=== PATIENT | female | born 2005 | race African-American/Black ===

== ENCOUNTER 2023-03-12 18:29 | Emergency (ER) | payer MEDICAID, OTHER ==
[~2023-03-12] VITALS: Ht 154.9 cm; Wt 59.8 kg
[2023-03-13] MEDS ORDERED: methylPREDNISolone SOD SUCC 125 MG/2 ML VL IM ONE
[2023-03-13] MEDS ORDERED: diphenhdrAMINE HCL 50 MG/1 ML VL IM ONE
[2023-03-13] MEDS ORDERED: PRED20TA2 PO (00:01)
[2023-03-13] MEDS ORDERED: DIPH25CA66 PO (00:01)
[2023-03-13 00:55] VITALS: BP 101/56; PULSE 82; RESP 18; TEMP 98; O2SAT 100
== END 2023-03-13 01:35 | disposition home or self-care (01) ==
LOC: ER 18:29
DX: T78.49XA Other allergy, initial encounter (principal); Z88.8 Allergy status to other drugs, medicaments and biological substances; Z79.899 Other long term (current) drug therapy; X58.XXXA Exposure to other specified factors, initial encounter
CPT/HCPCS: 96372; 99284; J1200; J2930